=== PATIENT | male | born 1965 | race Caucasian/White ===

== ENCOUNTER 2016-11-01 13:47 | Inpatient (IN) ==
--- NOTE | 2016-11-01 14:30 | Emergency Department Note ---
START Narrative - START START: I examined this patient and my medical decision-making was reviewed with the MAGISTRATE/PA/Advanced Practice Nurse/Resident Physician. I agree with the documented findings, disposition and treatment plan as described except to the extent set forth below. ED attending note: Patient seen with emergency medicine resident Dr Ornelas. We independently evaluated the patient. We independently had [id number] contact with the patient. Please see a copy of his note for details of the history and physical, evaluation, management and disposition of this emergency Department patient. Briefly: A 51-year-old obese white male sent in from the [facility] for chest pain shortness of breath. History of obesity and hypertension that is spinal control. No known cardiac workups. EKG shows no acute ischemic changes. Troponin negative. Plan is admission. Patient stable.
--- NOTE | 2016-11-01 14:36 | Emergency Department Note ---
Disposition Clinical Impression: Unstable angina pectoris Disposition: Admitted As Inpatient Condition: Good Forms: ED Satisfaction Letter Time of Disposition: 14:51 Chest Pain HPI - General Chief Complaint: ED Chest Pain Stated Complaint: chest pain Time Seen by Provider: 11/01/16 13:50 Source: patient, EMS Limitations: no limitations Vital Signs Reviewed: Yes Nursing Notes Reviewed: Yes - History of Present Illness HPI Narrative: Patient began having chest pain this morning at 6:30 after he woke up. He states he was short of breath with this as well. He has never had pain like this before. It was in the left side of his chest he describes it as a sharp pain. It lasted for about 30 minutes and went away on its own. There are no provoking factors. It did not radiate anywhere. Severity scale (1-10): 0 - Related Data Home Medications Medication Instructions Recorded Confirmed Aspirin 325 mg PO DAILY 11/01/16 11/01/16 Carvedilol [Coreg] 37.5 mg PO BID 11/01/16 11/01/16 Diltiazem HCl [Diltiazem ER] 240 mg PO DAILY 11/01/16 11/01/16 Losartan Potassium [Cozaar] 50 mg PO BID 11/01/16 11/01/16 Petrolatum,White [Aloe [place]] 1 appl TP AD 11/01/16 11/01/16 Allergies Allergy/AdvReac Type Severity Reaction Status Date / Time bacitracin AdvReac Unknown Verified 11/01/16 15:16 [From Neosporin ([id number])] Neomycin AdvReac Unknown Verified 11/01/16 15:16 [From Neosporin ([id number])] polymyxin B AdvReac Unknown Verified 11/01/16 15:16 [From Neosporin ([id number])] Review of Systems: Patient denies any fevers or chills or recent illnesses. He does report shortness of breath associated with this chest pain that began this morning. He denies this at this time. He denies any nausea vomiting or diarrhea. He denies any abdominal pain. He denies any swelling or edema to his extremities. He does report being overweight. He states he has never had chest pain like this before. He denies any cough or congestion. All systems ED: reviewed and negative except as stated. Chest Pain PMH - Past Medical History Medical history: Reports: coronary artery disease, hypertension, other Psychiatric history: Reports: no psych history - Social History Smoking Status: Never smoker Alcohol use: Reports: unknown Drug use: Reports: none Physical Exam - General Limitations: no limitations General appearance: alert, in no apparent distress, obese - Head Head exam: atraumatic, normocephalic, normal inspection - Eye Eye exam: Present: normal appearance, PERRL, EOMI. Absent: scleral icterus - ENT ENT exam: normal exam, normal oropharynx, mucous membranes moist - Neck Neck exam: Present: normal inspection, full ROM, trachea midline. Absent: lymphadenopathy - Chest Chest inspection: Present: normal inspection, symmetric chest wall rise. Absent : tenderness - Respiratory Respiratory exam: Present: normal lung sounds bilaterally. Absent: respiratory distress, wheezes, stridor - Cardiovascular Cardiovascular exam: Present: regular rate, normal rhythm, normal heart sounds - Abdominal Exam Abdominal exam: Present: soft, Non-Tender, normal bowel sounds. Absent: tenderness, distention, guarding, rebound, rigidity - Extremities Exam Extremities exam: Present: normal inspection, full ROM, normal capillary refill. Absent: tenderness, pedal edema - Back Exam Back exam: Present: normal inspection - Neurological Exam Neurological exam: Present: alert, oriented X3 - Psychiatric Psychiatric exam: Present: normal affect, normal mood - Skin Skin exam: Present: warm, dry, intact, normal color Course Course Narrative: Now patient being sent [facility] for [facility]. He was seen at the [facility] today and EKG chest x-ray and lab work was done. Patient had a troponin of 0.01. He has no ST elevation or depression. Patient is a obese male with no cardiac history and no history of any cardiac workup. He states his pain started after he woke up this morning. Last for about 30 minutes. It was sharp and on the left side of his chest wall. He is asymptomatic at this time. He has had aspirin and nitroglycerin. He is hypertensive while here. He states this is chronic for him. He does take blood pressure medication and has for several years with no control of the blood pressure. He has no complaints at this time. We will admit patient for a ACS rule out. He is agreeable to this. - Consultations Consultation #1: Spoke with Dr. Rae. He is accepting patient in stable condition. Time: 14:48 Vital Signs Temperature 98.1 F 11/01/16 13:49 Pulse Rate 81 11/01/16 13:49 Respiratory Rate 20 11/01/16 13:49 Blood Pressure 199/142 11/01/16 13:49 O2 Sat by Pulse Oximetry 94 L 11/01/16 13:49 Temperature 98.1 F 11/01/16 13:49 Pulse Rate 79 11/01/16 14:00 Respiratory Rate 22 11/01/16 14:00 Blood Pressure 191/123 11/01/16 14:00 O2 Sat by Pulse Oximetry 96 11/01/16 14:00 Oxygen Delivery Oxygen Delivery Nasal Cannula Chest Pain - Medical Records Medical records reviewed: Yes I reviewed the patient's medical records. - Lab Data Lab results reviewed: Yes I reviewed the patient's lab results. - EKG Data EKG attestation: Yes I reviewed and interpreted this EKG. EKG results narrative: Normal sinus rhythm at a rate of 78. AK interval is 158. Respirations 25. QT is 389. QTC is 422. No signs of acute ischemia. No old to compare to. Heart Score - Score History: Moderately Suspicious EKG: Normal Age: 45-65 Risk Factors: Equal/Greater than 3 risk factor or history of atherosclerotic disease Troponin: Less than normal limit HEART Score Total: 4
[2016-11-01] MEDS ORDERED: Naloxone 0.4 MG/ML INJ IVP PRN (15:49)
[2016-11-01] MEDS ORDERED: Petrolatum, white 28.35 GM TUBE TP SCH (16:00)
--- NOTE | 2016-11-01 16:00 | Internal Med History&Physical ---
Date of Encounter: 11/01/16 Time of Encounter: 15:57 Assessment and Plan (1) Chest pain Current visit: Yes Status: Acute Patient reporting sharp left sided chest pain this morning for approximately 30 min, accompanied by shortness of breath. His blood pressure is uncontrolled, running 190s/120s-140s. He is morbidly obese with BMI of 73. Initial troponin negative at 0.01. EKG with NSR and no signs of acute ischemia. Possibley left heart strain related to uncontrolled hypertension, but will rule out ACS. Continuous cardiac catheterization technician serial troponins for trend Stress test and echocardiogram in the morning. Qualifiers: Chest pain type: precordial pain Qualified Code(s): R07.2 - Precordial pain (2) Hypertension Current visit: Yes Status: Acute Patient takes carvedilol, losartan and diltiazem at home for his blood pressure. He reports he took his medications this morning, but his blood pressure remains elevated at 190s/120s-140s. He reports his blood pressure sometimes runs this high despite his medications. Continue home doses of medications. Hydralazine 10mg IVP Q6hr PRN for SBP> 180 or DBP > 100. Consider increasing doses of medications or adding diuretic. Hold morning dose of carvedilol for planned stress test. Qualifiers: Hypertension type: essential hypertension Qualified Code(s): I10 - Essential (primary) hypertension (3) Morbid obesity with BMI of 70 and over, adult Current visit: Yes Status: Acute Patient with BMI of 73. Discussed risks of increased weight. Nutrition consult. (4) DVT prophylaxis Current visit: Yes Status: Acute Up to chair BID Foot pumps Lovenox 40mg SQ Daily Internal Medicine - H&P: HPI Chief complaint: chest pain Admitted From: Emergency Dept Plans for Post Hospital Care: Home History of present illness: Mr. Hutchison is a 51 year old male with hypertension, morbi left lower extremity lymphedema [facility]. Patient reports he woke up at 6: 30 this morning with sharp left-sided chest pain, it did not radiate, it was constant for about 30 minutes and was accompanied by shortness of breath which lasted longer for about an hour. He denies any palpitations, headache, lightheadedness, nausea, vomiting, dizziness. He denies any recent fever, chills, sweats, infection. Evaluation at the [facility] include a troponin which was negative at 0.01, EKG which showed normal sinus rhythm with heart rate of 78 and no signs of acute ischemia, chest x-ray which was limited due to body habitus but which showed a stable enlarged cardiac silhouette. Patient's blood pressure was elevated 190s/120s-140s. On exam, patient is alert and oriented, in no acute distress, morbidly obese. Heart has regular rate and rhythm, lungs are clear bilaterally to auscultation, bilateral lower extremities are edematous with left leg greater than right,patient reports this is chronic. Past Med Surg Social Fam HX - Past Medical History Source: patient Medical history: hypertension, other (LLE lymphedema, morbid obesity) Psychiatric history: no psych history - Past Surgical History Surgical History: other (tonsillectomy) - Social History Smoking Status: Never smoker Smokeless Tobacco Status: Yes (chewing tobacco) Alcohol use: unknown Drug use: none - Family History Mother Living Status: Still Living Father Living Status: Still Living Internal Medicine - H&P: Meds Aspirin 325 mg PO DAILY 11/01/16 [History] Carvedilol [Coreg] 37.5 mg PO BID 11/01/16 [History] Diltiazem HCl [Diltiazem ER] 240 mg PO DAILY 11/01/16 [History] Losartan Potassium [Cozaar] 50 mg PO BID 11/01/16 [History] Petrolatum,White [Aloe [place]] 1 appl TP AD 11/01/16 [History] Allergies bacitracin [From Neosporin ([id number])] Adverse Reaction (Verified 11/01/16 15:16) Unknown [facility] list. Neomycin [From Neosporin ([id number]-[id number])] Adverse Reaction (Verified 11/01/16 15 :16) Unknown Per [facility] list. polymyxin B [From Neosporin ([id number]-[id number])] Adverse Reaction (Verified 15:16) Unknown Per [facility] list. All Systems PM: A 10-system review of systems was performed and is negative for pertinent findings except as documented above in the HPI. - Constitutional Constitutional: no chills, no fever(s), no night sweats - EENT Eyes: no change in vision, no discharge, no pain, no photophobia Ears: no ear discharge, no ear pain, no tinnitus Nose, mouth and throat: no dysphagia, no nasal discharge, no neck pain, no sore throat - Cardiovascular Cardiovascular ROS IM: chest pain, dyspnea, edema, no diaphoresis, no lightheadedness, no palpitations, no syncope - Respiratory Respiratory: dyspnea, no cough, no wheezing, no excessive phlegm production - Gastrointestinal Gastrointestinal: no abdominal pain, no diarrhea, no hematemesis, no hematochezia, no melena, no nausea, no vomiting - Musculoskeletal Musculoskeletal ROS IM: no numbness, no tingling - Integumentary Integumentary IM: no rash, no unusual bruising - Neurological Neurological ROS: no confusion, no convulsions, no focal weakness, no numbness, no tingling, no tremor(s) - Hematologic/Lymphatic Hematologic/Lymphatic: no easy bruising - Constitutional Vitals: Temp Pulse Resp BP Pulse Ox 98.1 F 79 24 198/126 96 11/01/16 13:49 11/01/16 14:00 11/01/16 15:38 11/01/16 15:38 11/01/16 14:00 General appearance: Present: A&O X 3, morbidly obese, pleasant, no acute distress - Head Head exam: Present: atraumatic, normocephalic - Eye Eye exam: Present: PERRL, conjuntiva pink, sclera anicteric Pupils: Present: PERRL - Neck Neck exam general surgery: Present: supple, trachea midline. Absent: lymphadenopathy - Respiratory Respiratory exam: Present: CTAB. Absent: accessory muscle use, rales, rhonchi, wheezes - Cardiovascular Cardiovascular exam: Present: RRR, +S1, +S2. Absent: diastolic murmur, gallop, rubs, systolic murmur - GI/Abdominal GI/Abdominal exam: Present: normal bowel sounds, soft, no peritoneal signs. Absent: distended, tenderness - Extremities Exam Extremities exam: Present: pedal edema (BLE edema, L>R), warm, radial pulses palpable and symetrical. Absent: calf tenderness, cyanotic - Neurological Exam Neurological exam: Present: CN II-XII intact, oriented X3, no focal deficits. Absent: facial droop, speech deficit - Skin Skin exam: Present: dry Additional comments: BLE calves with lesions associated with longstanding edema. Internal Med - H&P Results - Labs Labs: [facility]: Hgb 14.5 HCT 46.7 WBC 7.5 PLT 199 NA 139 K 4.2 CL 103 Co2 26 BUN 20 Cr 1.01 Glu 80 Trop 0.01 BNP 382
[2016-11-01] MEDS: Famotidine 20 MG TABLET PO SCH (21:09)
[2016-11-01] MEDS: niCARdipine 20 MG/200 ML MLS IVC SCH (21:14)
[2016-11-02 01:02] LABS: Basophils % 0.3 %; Eosinophils % 0.3 %; Hematocrit 42.9 % (37.5-50.1); Hemoglobin 13.5 g/dL (12.9-16.9); Immature Platelets 3.6 % (1.1-6.1); Lymphocytes # 0.5 K/mcL (0.6-4.6); Lymphocytes % 6.6 %; Mean Corpuscular HGB Conc 31.5 g/dL (31.6-35.5); Mean Corpuscular Hemoglobin 26.8 pg (28.0-33.3); Mean Corpuscular Volume 85.1 fL (83.0-100.0); Mean Platelet Volume 10.7 fL (9.4-12.4); Monocytes # 0.5 K/mcL (0.0-1.3); Monocytes % 6.6 %; Neutrophils # 5.9 K/mcL (1.6-8.9); Platelet Count 165 K/mcL (140-400); Red Blood Count 5.04 M/mcL (4.19-5.50); Red Cell Distribution Width 14.8 % (11.5-14.5); Segmented Neutrophils % 85.2 %
[2016-11-02] MEDS: niCARdipine 20 MG/200 ML MLS IVC SCH (01:58)
[2016-11-02 03:33] LABS: BUN/Creatinine Ratio 25 (6-26); Blood Urea Nitrogen 23 mg/dL (8-26); Carbon Dioxide 24 mEq/L (19-29); Chloride 104 mEq/L (98-109); Glucose 110 mg/dL (70-99); Osmolality,Calculated 286 (280-300); Sodium 136 mEq/L (136-145); eGFR For African Americans > 60 (> 60); eGFR For Non-African Americans > 60 (> 60)
[2016-11-02] MEDS ORDERED: *HR* Enoxaparin 40 MG/0.4 ML SYRINGE SQ SCH (07:00)
[2016-11-02] MEDS ORDERED: Perflutren Lipid Microsphere 1.3 ML in 0.9 % Sodium Chloride 8.7 ML IVP ONE (08:14)
[2016-11-02] MEDS ORDERED: Perflutren Lipid Microsphere 2 ML VIAL ONE (08:16)
[2016-11-02] MEDS ORDERED: Petrolatum, White OINT.PACK TP SCH (09:00)
[2016-11-02] MEDS ORDERED: Diltiazem CD (24hr) 240 MG CAPSULE PO SCH (09:00)
[2016-11-02] MEDS ORDERED: Aspirin 325 MG TABLET PO SCH (09:00)
--- NOTE | 2016-11-02 10:35 | ECHO - Doppler Report ---
Echo with Imaging Enhancement Agent Name: Sidney Hutchison Date of Study: 11/02/2016 Date: 1965 Ht: 72.0 in Medical Record#: [id number] Age: 51 Wt: 538.0 lb Gender: Male BSA: 3.24 Order #: [id number] Location: [facility] Room #: 3B36 Reading Physician: Therese Roldan DO Rn Emergency: Michelle Solorzano Ordering Physician: Albertina Milian CNP Primary Physician: [facility] Indications: Chest pain Impressions: Technically challenging study with suboptimal windows. LV systolic function is normal with use of Definity. However, not all myocardial segments were well visualized. RV is not well visualized. No valve dysfunction by Doppler. Suboptimal TR gradient to estimate RVSP. Left Ventricular Wall Motion: Rest Echo Findings All wall segments showed normal motion. Findings: Study Quality * Technically sub-optimal due to body habitus. ECG Findings * Normal sinus rhythm. Tricuspid Valve * Tricuspid valve not well visualized. * Trace tricuspid regurgitation. Pulmonic Valve * Pulmonic valve is not well visualized. * No pulmonic stenosis. * No pulmonic regurgitation. Pulmonary Artery * Pulmonary artery not well visualized. Aortic Valve * Aortic valve not well visualized. * No aortic stenosis. * No aortic regurgitation. Left Atrium * Normal left atrial size. Right Atrium * Mildly dilated right atrium. Mitral Valve * Normal mitral valve structure. * No mitral stenosis. * No mitral regurgitation. Left Ventricle * Mild left ventricular diastolic dysfunction. * Suboptimal PLAX images for measurement of LV size and wall thickness. * Definity echo contrast was used. * Normal LV systolic function with use of Definity. Right Ventricle * RV is not well evaluated. Interatrial Septum * Interatrial septum not well evaluated. IVC * The IVC is not well evaluated. Pericardium * There is no pericardial effusion present. Aorta * Not fully visualized. History Hypertension Family History of CAD Contrast: Definity 1.3 ml in 8.7 ml of saline 3 ml. Measurements: BP: 148/ 87 2D Normal Values LA volume: Mitral Valve Peak E:1.11 m/sec Peak A:.97 m/sec E/A Ratio:1.1 Peak E' Lat Jerry:6.24 cm/s Peak E' Med Ejrry:5.36 cm/s E/E' Lat Ratio:17.8 E/E' Med Ratio:20.7 Updated by Therese Roldan on 11/02/2016 10:26:13 AM electronically signed on 11/02/2016 10:29:40 AM with status of Final Wall Motion Hoang: 1=Normal, 2=Hypokinesis, 3=Akinesis, 4=Dyskinesis, 5=Aneurysmal, 6=Hyperkinetic, X=Not Visualized (Blank)=Missing
[2016-11-02] MEDS: Famotidine 20 MG TABLET PO SCH (10:36)
[2016-11-02 11:58] VITALS: BP 115/75
--- NOTE | 2016-11-02 14:11 | Discharge Summary ---
Date of Encounter: 11/02/16 Time of Encounter: 14:09 - Discharge Diagnosis (1) Hypertensive urgency Priority: Primary Status: Acute (2) Chest pain Priority: Primary Status: Acute Qualifiers: Chest pain type: precordial pain Qualified Code(s): R07.2 - Precordial pain (3) Morbid obesity with BMI of 70 and over, adult Priority: Secondary Status: Chronic - Discharge Medications Home Medications: Aspirin 325 mg PO DAILY 11/01/16 [History] Carvedilol [Coreg] 37.5 mg PO BID 11/01/16 [History] Diltiazem HCl [Diltiazem ER] 240 mg PO DAILY 11/01/16 [History] Losartan Potassium [Cozaar] 50 mg PO BID 11/01/16 [History] Petrolatum,White [Aloe [place]] 1 appl TP AD 11/01/16 [History] Allergies/Adverse Reactions: Allergies bacitracin [From Neosporin ([id number])] Adverse Reaction (Verified 11/01/16 15:16) Unknown Per [facility] list. Neomycin [From Neosporin ([id number]-oot-[id number])] Adverse Reaction (Verified 11/01/16 15 :16) Unknown Per [facility] list. polymyxin B [From Neosporin (gos-lak-zzcxj)] Adverse Reaction (Verified 15:16) Unknown Per [facility] list. Date of admission: 11/02/16 13:24 Primary care physician: [facility] Discharging clinician: Dalton Segovia Anticipated date of discharge: 11/02/16 - Patient Status Disposition: Home, Self-Care Condition: Good Functional capacity at discharge: independent ambulation Overall status at discharge: patient is back to baseline - Discharge Instructions Follow Up With: [facility],PCP [Primary Care Provider] - - Diet and Activity Activity: resume usual activities as tolerated Diet: low fat, low cholesterol, low salt diet Interval History: 51 year old male with hypertension, morbid obesity with 73.0 , chronic left lower extremity lymphedema who presented to the [facility] 11/01/16 with complaints of chest pain and [facility] emergency room. Patient reported he woke up at 6:30 on day of presentation with sharp left-sided chest pain, it did not radiate, it was constant for about 30 minutes and was accompanied by shortness of breath which lasted longer for about an hour. He denies any palpitations, headache, lightheadedness, nausea, vomiting, dizziness. He denied any recent fever, chills, sweats, infection. Physical exam on presentation was remarkable for HTN urgency with BP elevated 190s/120s-140s. Patient was alert and oriented, in no acute distress, morbidly obese. Heart has regular rate and rhythm, lungs are clear bilaterally to auscultation, bilateral lower extremities are edematous with left leg greater than right,patient reports this is chronic. Evaluation at the [facility] included a troponin which was negative at 0.01, EKG which showed normal sinus rhythm with heart rate of 78 and no signs of acute ischemia , chest x-ray which was limited due to body habitus but which showed a stable enlarged cardiac silhouette. Patient was admitted for chest pain work up to due his risk factors Of note, patient did not have any more chest pain since arrival Due to body habitus and weight >500 pounds, patient is unable to have stress test done here Troponin cycling remained negative His ECHOcardiogram was technically difficult due to body habitus but showed normal LVEF with use of definity and no valve dysfunction, sub-optimal gradient to estimate RVSP.All wall segments showed normal motion. I believe his chest pain was as a result of his uncontrolled HTN at presentation Compliance is questionable as patient's blood pressure has remained controlled in-patient with same home medications. Patient is educated to follow up with PCP at the [facility] If chest pain recurs, he will need to go directly to [facility] as a stress test and or intervention may be required in a tertiary center like [facility] because of his body habitus Plan discussed, verbalized understanding Hospital course: Mr. Hutchison is a 51 year old male - Time Spent with Patient Total time spent providing and/or coordinating discharge services: Less than 30 minutes - Constitutional Vitals: Temp Pulse Resp BP Pulse Ox 98.6 F 77 17 115/75 93 L 11/02/16 11:58 11/02/16 11:58 11/02/16 11:58 11/02/16 11:58 11/02/16 11:58 General appearance: Present: A&O X 3, morbidly obese, pleasant, no acute distress - Head Head exam: Present: atraumatic, normocephalic - Eye Eye exam: Present: PERRL, conjuntiva pink, sclera anicteric Pupils: Present: PERRL - Neck Neck exam general surgery: Present: supple, trachea midline. Absent: lymphadenopathy - Respiratory Additional comments: decreased breath sounds bilaterally possibly from body habitus No audible wheezing or stridor No chest wall tenderness - Cardiovascular Cardiovascular exam: Present: RRR, +S1, +S2. Absent: diastolic murmur, gallop, rubs, systolic murmur - GI/Abdominal GI/Abdominal exam: Present: normal bowel sounds, soft, no peritoneal signs. Absent: distended, tenderness - Extremities Exam Additional comments: Chronic venous congestion with dermatitis, chronic - Neurological Exam Neurological exam: Present: CN II-XII intact, oriented X3, no focal deficits. Absent: pronater drift, facial droop, speech deficit - Skin Skin exam: Present: dry, excoriation - VTE Documentation of Mechanical Device: Intermittent pneumatic compression device
--- NOTE | 2016-11-04 16:11 | Electrocardiograph Report ---
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
== END 2016-11-02 16:45 | disposition home or self-care (01) | DRG 305 ==
LOC: EMEROO 13:47 → 3BNU 13:47
PROVIDERS: ADMIT Internal Medicine; ATTEND Internal Medicine